=== PATIENT | female | born 1995 | race Caucasian/White ===

== ENCOUNTER 2022-09-29 11:36 | Emergency (ER) | payer BC, MEDICAID, SELFPAY ==
--- NOTE | 2022-09-29 12:13 | W.ED.GENADLT ---
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
--- NOTE | 2022-09-29 12:19 | W.ED.NAVMDI ---
HPI - Nausea/Vomiting/Diarrhea General: Chief complaint: Nausea/Vomiting/Diarrhea Stated complaint: N/V abd pain, body aches, was in heat all day yest Time Seen by Provider: 09/29/22 11:44 Source: patient Mode of arrival: ambulatory Limitations: no limitations History of Present Illness: Patient is a 27-year-old female who presents to ED today with complaint of nausea, vomiting, diarrhea. She states symptoms started this morning. She states yesterday she spent all day at the [employer] drinking alcohol out in the heat and states by yesterday evening she was vomiting. She states that persisted through the night. This morning she tried to treat with [id number] motion sickness medications as well as a warm bath. When asked about marijuana use she does report habitual chronic marijuana use. Patient reports abdominal pain mainly when trying to vomit/dry heave. She reported an episode of diarrhea yesterday evening. She has not been running fevers. No neurologic deficits. MD elicited complaint: nausea, vomiting and diarrhea Onset (ago): hour(s) Associated nausea: Yes Associated abdominal pain: Yes Location of pain: Diffuse Radiation: diffuse Pain consistency: intermittent Severity: moderate Quality: cramping Exacerbating factors: vomiting Relieving factors: none Associated symtoms: Reports nausea; Denies chest pain, dysuria, fatigue, headache(s) or malaise Treatment prior to arrival: other (motion sickness meds) Review of Systems Const: Denies: fever(s), chills, body aches, fatigue or malaise Card: Denies: chest pain Resp: Denies: dyspnea GI: Reports: abdominal pain, nausea, vomiting and diarrhea; Denies: hematemesis : Denies: flank pain, difficulty voiding, dysuria, hematuria or pelvic pain Musc: Denies: neck pain, back pain, extremity pain or joint pain Skin/Breast: Denies: rash Neuro: Denies: headache(s), numbness in extremities, weakness in extremities or sensory changes Physical Exam Const: COMMON NORMALS: average body habitus, patient oriented x3, no limitations, healthy appearing, alert and well nourished GENERAL APPEARANCE: cooperative and in distress (actively dry heaving/vomiting) ORIENTATION/CONSCIOUSNESS: Yes awake, Yes oriented to person, Yes oriented to place and Yes oriented to time HENMT: COMMON NORMALS: normocephalic and atraumatic HEAD & SCALP: normal to inspection, normocephalic and atraumatic Eye: GENERAL EYE: appearance normal, both eyes and all related structures Neck/C-Spine: COMMON NORMALS: full ROM, no lymphadenopathy and no meningeal signs Resp: COMMON NORMALS: normal respiratory effort and clear to auscultation bilaterally AUSCULTATION: clear to auscultation bilaterally Cardio: COMMON NORMALS: regular rate and regular rhythm RATE: regular rate RHYTHM: regular rhythm GI: COMMON NORMALS: Normal to inspection, nondistended, normoactive bowel sounds present, Soft to palpation, No hepatosplenomegaly present and no masses INSPECTION: Yes normal to inspection AUSCULTATION: Yes normoactive bowel sounds PALPATION: Yes Soft to palpation, Yes Tenderness to palpation present (GI) (diffusely), No Guarding due to palpation present (GI), No Rigid due to palpation and Yes No hepatosplenomegaly present : COMMON NORMALS: No no CVA tenderness BLADDER/KIDNEY EXAM: No no CVA tenderness Back/Pelvis: COMMON NORMALS: negative for no CVA tenderness, negative for thoracic and lumbar spine normal to inspection, negative for no thoracic nor lumbar tenderness and negative for thoraco-lumbar ROM normal Extremity: COMMON NORMALS: negative for normal to inspection GENERAL: No normal exam except as noted Neuro: HOWARD COMA SCALE: document GCS findings Howard coma scale eye opening: Spontaneous [place] coma scale verbal response: Orientated Howard coma scale motor response: Obey commands Howard coma scale total score: 15 COMMON NORMALS: patient oriented x3, moves all extremities, no focal motor deficits, no sensory deficits noted and gait normal SENSORIUM/ORIENTATION: Yes alert, Yes oriented to person, Yes oriented to place and Yes oriented to time MENINGEAL SIGNS: Yes no meningeal signs Skin: COMMON NORMALS: no rashes or lesions noted GENERAL SKIN EXAM: no rashes or lesions noted Course Reevaluation(s): Reevaluation #1: After IV fluids, Zofran, Ativan patient is resting comfortably in no acute distress. She has not had any further episodes of vomiting or diarrhea. She is no longer having abdominal pain. Vital Signs: Vital signs: Vital Signs Pulse Rate 62 09/29/22 12:39 Respiratory Rate 16 09/29/22 12:39 Blood Pressure 104/59 09/29/22 12:39 Pulse Oximetry 95 09/29/22 12:39 Oxygen Delivery Me thod Room Air 09/29/22 12:39 MDM - Nausea/Vomiting/Diarrhea Medical Decision Making Patient clinically is much improved after fluids and medications given here. DDx includes dehydration, adverse effects of alcohol, cannabis hyperemesis syndrome, gastroenteritis. Vitals look good. Labs shownig a gap of 24.4 most likely due to dehydration. Mild hypokalemia at 3.4. She was given replacement for this. She is cleared from an ED standpoint at this time. Return to ED precautions given. Lab Data 09/29/22 12:21 09/29/22 12:21 Laboratory Results WBC 11.4 10^3/uL (4.0-10.0) H 09/29/22 12:21 RBC 4.75 10^6/uL (4.1-5.3) 09/29/22 12:21 Hgb 14.0 g/dL (11.5-15.3) 09/29/22 12:21 Hct 40.6 % (37.0-47.0) 09/29/22 12:21 MCV 85.5 fl (81-99) 09/29/22 12:21 MCH 29.5 pg (28.0-34.0) 09/29/22 12:21 MCHC 34.5 g/dL (30.0-36.0) 09/29/22 12:21 RDW 13.1 % (12.1-15.1) 09/29/22 12:21 Plt Count 323 10^3/cmm (130-400) 09/29/22 12:21 MPV 9.1 fL (7.4-10.4) 09/29/22 12:21 Neut % (Auto) 87.5 % 09/29/22 12:21 Lymph % (Auto) 9.2 % 09/29/22 12:21 [place] % (Auto) 2.8 % 09/29/22 12:21 Eos % (Auto) 0.0 % 09/29/22 12:21 Baso % (Auto) 0.1 % 09/29/22 12:21 Neut # (Auto) 10.00 10^3/uL (1.8-7.7) H 09/29/22 12:21 Lymph # (Auto) 1.1 10^3/uL (0.8-4.8) 09/29/22 12:21 [place] # (Auto) 0.3 10^3/uL (0.2-0.9) 09/29/22 12:21 Eos # (Auto) 0.0 10^3/uL (0.0-0.8) 09/29/22 12:21 Baso # (Auto) 0.0 10^3/uL (0.0-0.1) 09/29/22 12:21 Nucleated RBC % (auto) 0 % 09/29/22 12:21 Nucleated RBCs # 0.0 /100WBC 09/29/22 12:21 Sodium 142 mmol/L (136-145) 09/29/22 12:21 Potassium 3.4 mmol/L (3.5-5.1) L 09/29/22 12:21 Chloride 101 mmol/L (98-107) 09/29/22 12:21 Carbon Dioxide 20 mmol/L (22-29) L 09/29/22 12:21 Anion Gap 24.4 (5-19) H 09/29/22 12:21 BUN 16 mg/dL (6-20) 09/29/22 12:21 Creatinine 0.8 mg/dL (0.5-0.9) 09/29/22 12:21 GFR Calculation 86.0 mL/min (90-130) L 09/29/22 12:21 Glucose 121 mg/dL (65-115) H 09/29/22 12:21 Calculated Osmolality 296 mOsm/kg (285-295) H 09/29/22 12:21 Calcium 9.9 mg/dL (8.5-10.5) 09/29/22 12:21 Total Bilirubin 0.6 mg/dL (0.15-1.2) 09/29/22 12:21 AST 31 U/L (0-32) 09/29/22 12:21 ALT 25 U/L (0-33) 09/29/22 12:21 Alkaline Phosphatase 92 U/L (35-105) 09/29/22 12:21 Total Protein 8.1 g/dL (6.6-8.7) 09/29/22 12:21 Albumin 5.0 g/dL (3.5-5.2) 09/29/22 12:21 Globulin 3.1 g/dL (1.3-4.6) 09/29/22 12:21 Lipase 16 U/L (13-60) 09/29/22 12:21 HCG, Qual Negative (Negative) 09/29/22 12:21 Discharge Plan Discharge Condition: Stable Coding Level of Care Code ED [employer]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
[2022-09-29 12:21] VITALS: BMI 18.8
[2022-09-29 12:30] LABS: Basophils % 0.1 %; Hematocrit 40.6 % (37.0-47.0); Lymphocytes # 1.1 10^3/uL (0.8-4.8); Lymphocytes % 9.2 %; Mean Corpuscular HGB Conc 34.5 g/dL (30.0-36.0); Mean Corpuscular Hemoglobin 29.5 pg (28.0-34.0); Mean Corpuscular Volume 85.5 fl (81-99); Mean Platelet Volume 9.1 fL (7.4-10.4); Monocytes # 0.3 10^3/uL (0.2-0.9); Monocytes % 2.8 %; Neutrophils % 87.5 %; Nucleated Red Blood Cells % 0 %; Platelet Count 323 10^3/cmm (130-400); Red Blood Count 4.75 10^6/uL (4.1-5.3); Red Cell Distribution Width 13.1 % (12.1-15.1); White Blood Count 11.4 10^3/uL (4.0-10.0)
[2022-09-29] MEDS: ondansetron 2 mg/ML SDV 2 mL 4 MG IVP (12:34)
[2022-09-29] MEDS: LORazepam 2 mg/mL INJ 1 mL 1 MG IVP (12:35)
[2022-09-29] MEDS: sodium chloride 0.9% 1,000 ML 999 ML IV (12:37)
[2022-09-29 12:39] VITALS: BP 104/59; PULSE 62; RESP 16; O2SAT 95
[2022-09-29 12:47] LABS: HCG, Serum Qual Negative (Negative)
[2022-09-29 12:57] LABS: Alanine Aminotransferase 25 U/L (0-33); Alkaline Phosphatase 92 U/L (35-105); Anion Gap 24.4 (5-19); Aspartate Amino Transferase 31 U/L (0-32); Blood Urea Nitrogen 16 mg/dL (6-20); Calcium 9.9 mg/dL (8.5-10.5); Carbon Dioxide 20 mmol/L (22-29); Chloride 101 mmol/L (98-107); Globulin 3.1 g/dL (1.3-4.6); Glucose 121 mg/dL (65-115); Lipase 16 U/L (13-60); Osmolality Calculated 296 mOsm/kg (285-295); Potassium 3.4 mmol/L (3.5-5.1); Sodium 142 mmol/L (136-145); Total Bilirubin 0.6 mg/dL (0.15-1.2); Total Protein 8.1 g/dL (6.6-8.7)
[2022-09-29] MEDS: potassium chloride ER 20 mEq Tablet 40 MEQ PO (13:31)
== END 2022-09-29 13:54 | disposition home or self-care (01) ==
PROVIDERS: Emergency Provider Physician Assistant
DX: R11.2 Nausea with vomiting, unspecified (principal); R19.7 Diarrhea, unspecified
CPT/HCPCS: 80053; 83690; 84703; 85025; 96374; 96375; 99284; J2060; J2405; J7030

== ENCOUNTER 2025-03-12 16:48 | Emergency (ER) | payer MEDICAID, SELFPAY ==
--- NOTE | 2025-03-12 16:52 | ED_ITS ---
HPI - Abdominal Pain 2 General: Chief Complaint: Abdominal Pain Stated Complaint: vomitting, abdominal pain Time Seen by Provider: 03/12/25 16:51 Source: patient Mode of arrival: ambulatory Limitations: no limitations History of Present Illness: Patient is a 29-year-old female presents to ED today with a complaint of diffuse abdominal pain, nausea, vomiting, diarrhea beginning yesterday. Patient states her entire abdomen has severe pain. Denies poor food exposures. She has not noticed any hematemesis or melena/hematochezia. No fevers. She arrives significantly anxious and hyperventilating and dry heaving. She was seen here 09/2022 for similar symptoms. Denies poor food exposures or sick contacts. 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 Denies marijauna use-in 2022 she was a habitual user. Family states her child has had recent vomiting as well as several other members in the home-wondering about stomach flu . MD elicited complaint: abdominal pain Onset (ago): day(s) (yesterday) Pain Consistency: constant Location: Diffuse Severity: severe Quality: stabbing and sharp Radiation: none Migration to: no migration Exacerbating factors: nothing Relieving factors: nothing Associated Symptoms: Reports diarrhea, nausea and vomiting; Denies chills, dysuria, fever(s), hematochezia, hematemesis and melena Related Data Previous Rx's ?Medication ?Instructions ?Recorded ondansetron 4 mg disintegrating 4 mg PO Q8H PRN nausea and 09/29/22 tablet vomiting #8 tabs Allergies Allergy/AdvReac Type Severity Reaction Status Date / Time No Known Allergies Allergy Verified 03/12/25 17:01 Review of Systems 2 Const: Denies: fever(s), chills, body aches, fatigue or malaise Card: Denies: chest pain Resp: Denies: dyspnea GI: Reports: abdominal pain, nausea, vomiting and diarrhea; Denies: hematemesis, hematochezia or melena : Denies: flank pain, difficulty voiding, dysuria, urinary frequency, urinary urgency or urinary hesitancy Musc: Denies: neck pain, back pain, extremity pain, extremity swelling, joint pain, joint swelling or joint redness Skin/Breast: Denies: rash Neuro: Denies: headache(s), numbness in extremities, weakness in extremities, sensory changes or dizziness Physical Exam 2 Const: COMMON NORMALS: average body habitus, patient oriented x3, no limitations, healthy appearing, alert and well nourished GENERAL APPEARANCE: cooperative, in distress (hyperventilating, dry heaving) and anxious O RIENTATION/CONSCIOUSNESS: Yes awake, Yes oriented to person, Yes oriented to place and Yes oriented to time HENMT: COMMON NORMALS: normocephalic and atraumatic HEAD & SCALP: normal to inspection, normocephalic and atraumatic Eye: COMMON NORMALS: no scleral icterus Resp: COMMON NORMALS: normal respiratory effort and clear to auscultation bilaterally EFFORT & INSPECTION: Yes tachypneic AUSCULTATION: clear to auscultation bilaterally Cardio: COMMON NORMALS: regular rate and regular rhythm RATE: regular rate RHYTHM: regular rhythm GI: INSPECTION: Yes normal to inspection AUSCULTATION: Yes normoactive bowel sounds PALPATION: Yes Tenderness to palpation present (GI) (diffusely), Yes Guarding due to palpation present (GI) and Yes Rigid due to palpation : COMMON NORMALS: Yes no CVA tenderness BLADDER/KIDNEY EXAM: Yes no CVA tenderness Back/Pelvis: COMMON NORMALS: no CVA tenderness, thoracic and lumbar spine normal to inspection and no thoracic nor lumbar tenderness Extremity: NARRATIVE EXTREMITY EXAM: L hand carpal spasm GENERAL: Yes normal exam except as noted Neuro: FACUNDO COMA SCALE: document GCS findings [place] coma scale eye opening: Spontaneous [place] coma scale verbal response: Orientated [place] coma scale motor response: Obey commands Facundo coma scale total score: 15 COMMON NORMALS: patient oriented x3, moves all extremities, no focal motor deficits and no sensory deficits noted SENSORIUM/ORIENTATION: Yes alert, Yes oriented to person, Yes oriented to place and Yes oriented to time Skin: COMMON NORMALS: no rashes or lesions noted GENERAL SKIN EXAM: no rashes or lesions noted Course 2 ED course: Patient re-evaluated and sleeping comfortably in NAD. She was awoken and tells me she feels so much better . Asking for water. I did discuss CT findings and inquired further into possible pelvic etiology-states she is not having any pelvic pain. No vaginal discharge or odor. Currently on menstrual cycle. She is not having any painful intercourse. Still pending urine at this time. ES Vital Signs: Vital signs: Vital Signs Temperature 98.7 F 03/12/25 16:58 Pulse Rate 95 03/12/25 20:09 Respiratory Rate 22 H 03/12/25 16:58 Blood Pressure 107/66 03/12/25 20:09 Pulse Oximetry 97 03/12/25 20:09 Oxygen Delivery Me thod Room Air 03/12/25 19:38 MDM - Abdominal Pain Medical Decision Making Patient here for diffuse abdominal pain as well as nausea, vomiting/dry heaving, diarrhea beginning yesterday. No fevers. She arrives anxious, hyperventilating with severe abdominal pain. Patient did previously have a history of habitual marijuana use. She initially denied this to me although clinical presentation seems suspicious for a cannabinoid hyperemesis syndrome. Her UDS did end up testing positive for marijuana. She was treated with 2L IV fluids, Ativan, Haldol and on re-examination (multiple re-examinations) she is resting comfortable and reportedly feels so much better . She is drinking in the room without difficulty. Vital signs stable. Blood work overall is unremarkable. UA is clear. UDS positive for the benzodiazepines (administered here) as well as marijuana. Abdominal re-examination is benign. CT imaging of her abdomen/pelvis obtained which shows some nonspecific findings in her pelvis. Patient states she has not been having any pelvic pain. No vaginal discharge or vaginal odor. No painful intercourse. She is currently on her menstrual cycle. No other abnormalities noted. At this time patient feels comfortable going home. Return to ED precautions discussed. Differential Diagnosis Likely abdominal pain, acute appendicitis, gastroenteritis and small bowel obstruction Medical Records I reviewed the patient's medical records. Lab Data I reviewed the patient's lab results. 03/12/25 17:03 03/12/25 17:03 Labs/Radiology: Radiology Impressions Abdomen/Pelvis CT 03/12/25 16:59 IMPRESSION: Small amount of air scattered in the pelvic peritoneal cavity in the pelvic cul-de-sac. Pelvic edema in the mesentery is noted. Subtle pelvic inflammatory process is difficult to exclude. The uterus is unremarkable. No definitive ovarian mass or adnexal mass. The appendix is probably visualized in the right lower quadrant without evidence of appendicitis. Few loops of mildly distended fluid-filled bowel in the left lower quadrant/pelvis with unclear etiology. The rectal wall may be slightly thickened/mildly inflamed. COMMENTS: Consistent with the [place] [employer]'s Incidental Findings Committee white paper (J Am Khris Radiol 2018): Any incidental renal lesion less than 1 cm or classified as too small to characterize, or any incidental cystic renal lesion characterized as simple-appearing, is likely benign. No follow-up imaging is recommended for these lesions per consensus recommendations based on imaging criteria. Laboratory Results WBC 13.16 10^3/uL (3.29-11.43) H 03/12/25 17:03 RBC 4.72 10^6/uL (3.85-5.65) 03/12/25 17:03 Hgb 13.80 g/dL (11.27-16.99) 03/12/25 17:03 Hct 40.7 % (36-47) 03/12/25 17:03 MCV 86.2 fl (85-98) 03/12/25 17:03 MCH 29.2 pg (27-33) 03/12/25 17:03 MCHC 33.9 g/dL (30-55) 03/12/25 17:03 RDW 12.6 % (12.1-15.1) 03/12/25 17:03 Plt Count 357 10^3/cmm (157-399) 03/12/25 17:03 MPV 9.0 fL (7.4-10.4) 03/12/25 17:03 Neut % (Auto) 88.5 % 03/12/25 17:03 Lymph % (Auto) 8.7 % 03/12/25 17:03 [place] % (Auto) 2.2 % 03/12/25 17:03 Eos % (Auto) 0.1 % 03/12/25 17:03 Baso % (Auto) 0.2 % 03/12/25 17:03 Neut # (Auto) 11.65 10^3/uL (1.8-7.7) H 03/12/25 17:03 Lymph # (Auto) 1.1 10^3/uL (0.8-4.8) 03/12/25 17:03 [place] # (Auto) 0.3 10^3/uL (0.2-0.9) 03/12/25 17:03 Eos # (Auto) 0.0 10^3/uL (0.0-0.8) 03/12/25 17:03 Baso # (Auto) 0.0 10^3/uL (0.0-0.1) 03/12/25 17:03 Nucleated RBC % (auto) 0 % 03/12/25 17:03 Nucleated RBCs # 0.0 /100WBC 03/12/25 17:03 Sodium 140 mmol/L (136-145) 03/12/25 17:03 Potassium 3.5 mmol/L (3.5-5.1) 03/12/25 17:03 Chloride 99 mmol/L (98-107) 03/12/25 17:03 Carbon Dioxide 22 mmol/L (22-29) 03/12/25 17:03 Anion Gap 22.5 (5-19) H 03/12/25 17:03 BUN 14 mg/dL (6-20) 03/12/25 17:03 Creatinine 0.8 mg/dL (0.5-0.9) 03/12/25 17:03 GFR Calculation 84.8 mL/min (90-130) L 03/12/25 17:03 Glucose 130 mg/dL (65-115) H 03/12/25 17:03 Calculated Osmolality 292 mOsm/kg (285-295) 03/12/25 17:03 Calcium 10.0 mg/dL (8.5-10.5) 03/12/25 17:03 Total Bilirubin 0.5 mg/dL (0.15-1.2) 03/12/25 17:03 AST 31 U/L (0-32) 03/12/25 17:03 ALT 29 U/L (0-33) 03/12/25 17:03 Alkaline Phosphatase 83 U/L (35-105) 03/12/25 17:03 Total Protein 8.1 g/dL (6.6-8.7) 03/12/25 17:03 Albumin 5.2 g/dL (3.5-5.2) 03/12/25 17:03 Globulin 2.9 g/dL (1.3-4.6) 03/12/25 17:03 Lipase 19 U/L (13-60) 03/12/25 17:03 HCG, Qual Negative (Negative) 03/12/25 17:03 Urine Color Yellow (Yellow) 03/12/25 19:22 Urine Appearance Clear (CLEAR) 03/12/25 19:22 Urine pH 5.5 (5-7) 03/12/25 19:22 Ur Specific [place] >= 1.099 (1.005-1.030) H 03/12/25 19:22 Urine Protein 1+ (Negative) A 03/12/25 19:22 Urine Glucose (UA) Negative (Normal) 03/12/25 19:22 Urine Ketones 1+ (Negative) H 03/12/25 19:22 Urine Blood Negative (Negative) 03/12/25 19:22 Urine Nitrate Negative (Negative) 03/12/25 19:22 Urine Bilirubin Negative (Negative) 03/12/25 19:22 Urine Urobilinogen 0.2 mg/dL (Negative) 03/12/25 19:22 Ur Leukocyte Esterase Negative (Negative) 03/12/25 19:22 Urine RBC 0-4 /hpf (0-2) H 03/12/25 19:22 Urine WBC 0-4 /hpf (0-5) H 03/12/25 19:22 Ur Squamous Epith Cells 0-4 /hpf (0-5) H 03/12/25 19:22 Amorphous Sediment Not Reportable 03/12/25 19:22 Urine Bacteria None /hpf (NONE) 03/12/25 19:22 Urine Opiates Screen Negative ng/mL (Negative) 03/12/25 19:22 Ur Barbiturates Screen Negative ng/mL (Negative) 03/12/25 19:22 Ur Phencyclidine Scrn Negative ng/mL (Negative) 03/12/25 19:22 Ur Amphetamines Screen Negative ng/mL (Negative) 03/12/25 19:22 U Benzodiazepines Scrn Positive ng/mL (Negative) H 03/12/25 19:22 Urine Cocaine Screen Negative ng/mL (Negative) 03/12/25 19:22 U Marijuana (THC) Screen Positive ng/mL (Negative) H 03/12/25 19:22 All radiology interpretation(s) finalized by discharge Discharge Plan Discharge Patient Disposition: Home Clinical Impression: Dehydration, Gastroenteritis Condition: Stable Prescriptions: No Action ondansetron 4 mg tablet,disintegrating 4 mg PO Q8H PRN (Reason: nausea and vomiting) Qty: 8 0RF Discharge Orders: Discharge ED (Routine); Ordered 03/12/25 Ordered By: Ivanna Wilkinson Patient Instructions: Acute Nausea and Vomiting (DC), Abdominal Pain (ED), Patient Portal & Mariaa Instructions Activity Restrictions/Additional Instructions: As we discussed, blood work here overall was unremarkable. Continue to monitor symptoms closely at home. Continue to push fluids to avoid dehydration. Patient needs to return to the emergency department for onset of worsening or severe abdominal pains, repetitive episodes of vomiting or diarrhea, fevers, lightheadedness/dizziness/passing out episodes, generally feeling worse or unwell, or any other concerns you may have. I hope you begin to feel better soon. 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
[2025-03-12 16:58] VITALS: PULSE 69; RESP 22; TEMP 37.1; O2SAT 99; BMI 22.4
--- OUTSIDE RECORDS SUMMARY | 2025-03-12 16:58 | XMS_ITS | Clinical Summary ---
Author Organization [facility] Address [address] Huang: Epic Prelude ADT AYDEE MANCIA [address] Care Team Providers Care Software Tools Engineer Name Role Phone Unavailable Primary Care Provider Unavailabl e Allergies No known active allergies Medications biotin 10 mg Tablet Take by mouth daily. Active Drospirenone-Eth inyl estradiol (Dangelo Spears,) 3-0.02 mg tabletIndication s:Irregular menses Take 1 Tablet by mouth daily. 84 Tablet 4 05/15/2022 Active Active Problems Problem Noted Date Diagnosed Date LUQ abdominal pain 10/19/2016 Chlamydia infection complica ting in first trimester 10/18/2016 Intractable headache 10/17/2016 Constipation 10/17/2016 Low back pain 10/17/2016 FHx: spina bifida 10/16/2016 FHx: cystic fibrosis 10/16/2016 Subchorionic hemorrhage in first trimester 10/16 Supervision of other normal , antepartu m 10/14/2016 Resolved Problems Problem Noted Date Diagnosed Date Resolved Date Acute pelvic inflammatory disease (PID) 10/17/2016 04/23/2017 Abdominal pain, acute, right lower quadrant 10/16/2016 04/23/2017 Fever of unknown origin (FUO) 10/16/2016 04/23/2017 Supervision of normal pregna ncy- TDap given 09/18/14 06/01/2014 01/24/2015 Immunizations Immunization Administration Dates Next Due (ADACEL/BOOSTRIX)(10 YR UP) TDAP VACCINE, 0.5ML, IM 09/18/2014 INFLUENZA VACCINE QUADRIVALENT 3 YR UP PF IM 01/2017 Family History Medical History Relation Name Comments Cancer Brother non hodgkins No Known Problems Daughter Cancer Father Cancer Maternal Grandfather Stroke Maternal Grandfather Healthy Mother Breast Cancer Other maternal great aunts No Known Problems Son 1 No Known Problems Son 2 Colon Cancer Neg Hx Ovarian Cancer Neg Hx Relation Name Status Comments Brother Alive Daughter Alive Father Maternal Grandfather Alive Mother Alive Other Son 1 Alive Son 2 Alive Social History Tobacco Use Types Packs/Day Years Used Date Smoking Tobacco: Never Smokeless Tobacco: Never Alcohol Use Standard Drinks/Week Comments Never 0 (1 standard drink = 0.6 oz pur e alcohol) Comments No Sex and Gender Information Value Date Recorded Sex Assigned at Not on file Legal Sex Female 5:26 AM ADMISSIONS ADVISOR Gender Identity Not on file Sexual Orientation Not on file Last Filed Vital Signs Vital Sign Reading Time Taken Comments Blood Pressure 124/72 05/15/2022 9:23 AM ADMISSIONS ADVISOR Pulse 71 06/10/2021 9:45 AM CDT Temperature 36.4 C (97.6 F) 06/10/2021 9:14 AM CDT Respiratory Rate 22 06/10/2021 9:16 AM CDT Oxygen Saturation 100% 06/10/2021 9:45 AM CDT Inhaled Oxygen Concentration - - Weight 62.1 kg (137 lb) 05/15/2022 9:23 AM ADMISSIONS ADVISOR Height 160 cm (5' 3 ) 05/15/2022 9:23 AM ADMISSIONS ADVISOR Body Mass Index 24.27 05/15/2022 9:23 AM ADMISSIONS ADVISOR Plan of Treatment Health Maintenance Due Date Last Done Comments HEPATITIS B VACCINES (1 of 3 - 19+ 3-dose series) 06/14/2014 DTAP/TDAP/TD VACCINES (2 - Td or Tdap) 09/18/2024 INFLUENZA VACCINE (#1) 2024 01/07/2017 CERVICAL CANCER SCREENING 05/15/2025 PAP SMEAR 05/15/2025 05/15/2022, 10/16/2016 HPV/Cotest (21-29) 05/15/2027 05/15/2022, 10/16/2016 HPV/Cotest (30-65) 05/15/2027 05/15/2022, 10/16/2016 HPV VACCINES (No Doses Required) Completed Medical Devices Implanted Type Area Creative Manager Device Identifier Shelf Expiration Date Model / Serial / Lot Imp Breast Memorygel Rnd Mp+ 450ml [id number] - [id number] Implanted:Qty: 1 on 06/10/2021 by Liliana Perez MD at [facility] Mammary Left: Breast MENTOR SHELLIE 08/19/2025 [id number] / [id number] Imp Breast Memorygel Rnd Mp+ 450ml [id number] - [id number] Implanted:Qty: 1 on 06/10/2021 by Liliana Perez MD at [facility] Mammary Right: Breast MENTOR SHELLIE 07/01/2025 [id number] / [id number] Procedures Procedure Name Priority Date/Time Associated Diagnosis Comments CERV/VAG CYTO SCREEN PAP RLFX HPV Routine 05/15/2022 9:59 AM ADMISSIONS ADVISOR Screening for cervical cancer from Last 3 Months or Most Recently Relevant to Health Maintenance Results * (ABNORMAL) CERV/VAG CYTO SCREEN PAP RLFX HPV (05/15/2022 9:59 AM ADMISSIONS ADVISOR) CLINICAL INFORMATION [facility] Comment:None given LAST MENSTRUAL PERIOD [facility] Comment:[id number] PREV PAP: [facility] [place] Comment:NONE GIVEN PREV BX: [facility] Comment:NONE GIVEN SOURCE [facility] [place] Comment:ENDOCERVIX ADEQUACY: [facility] [place] Comment: Satisfactory for evaluation. Endocervical/transformation zone component present. GENERAL CATEGORIZATION: (A) [facility] Comment:EPITHELIAL CELL ABNO RMALITY PAP INTERP (A) [facility] Comment: Atypical Squamous Cells of Undetermined Significance (ASC-US) COMMENT (PAP TEST) [facility] [place] Comment: This Pap test has been evaluated with computer assisted technology. Suggest clinical correlation and follow-up as clinically appropriate FUEL CELL REPAIRER: Lelo Oconnor Comment: PCM, CT(ASCP) CT Screening Location: [place] [address] [place] [address] PATHOLOGIST [facility] Comment: John Holloway M.D., Board Certified in Anatomic Pathology and Cytopathology. (electronic signature) EXPLANATORY NOTE [facility] Comment: EXPLANATORY NOTE: The Pap is a screening test for cervical cancer. It is not a diagnostic test and is subject to false negative and false positive results. It is most reliable when a satisfactory sample, regularly obtained, is submitted with relevant clinical findings and history, and when the Pap result is evaluated along with historic and current clinical information. HPV E6/E7 Detected( A) Not Detected [facility] Comment: Methodology: Professional System Administrator-Mediated Amplification This assay detects E6/E7 viral messenger RNA (mRNA) from 14 high-risk HPV types (16,18,31,33,35,39,45,51,52,56,58,59,66,68). Cervical sources are required for HPV testing. If a vaginal source from a patient who has had a total hysterectomy with removal of cervix was submitted, please contact the testing laboratory for alternative testing options. For additional information, please refer to http://education.[employer]/faq/BAE166v1 (This link if provided for information/ educational purposes only.) Test Performed at: [facility] [address] [address] Yasmin SONI Genital SWAB OF ENDOCERVIX / Unknown 05/15/2022 9:59 AM ADMISSIONS ADVISOR 05/16/2022 5:34 AM ADMISSIONS ADVISOR Jade Nickerson IMMIGRATION OFFICER PATHOLOGY/CYTOLOGY ORDERABL ES Final Result [facility] [phone] [facility] [address] [address] from Last 3 Months or Most Recently Relevant to Health Maintenance Insurance [facility] [id number] * Guarantor: CORTNEY TERRY Account Karey Relation to Patient Date of Phone Billing Address Personal/Family [address] [place] [address] RX INFOCROSSING Medicaid Advance Directives For more information, please contact: [phone] * Full Code (Latest Code Status on File) Date Activated Date Inactivated Comments 06/10/2021 6:27 AM 06/10/2021 12:27 PM
--- OUTSIDE RECORDS SUMMARY | 2025-03-12 16:58 | XMS_ITS | Clinical Summary ---
Author Organization [facility] Address [address] [address] Care Team Providers Care Pneumatic Systems Operator Name Role Phone Unavailable Primary Care Provider Unavailabl e Allergies No known active allergies Medications No known medications Active Problems Problem Noted Date Diagnosed Date LUQ abdominal pain 10/19/2016 Chlamydia infection complica ting in first trimester 10/18/2016 Intractable headache 10/17/2016 Low back pain 10/17/2016 Constipation 10/17/2016 FHx: spina bifida 10/16/2016 FHx: cystic fibrosis 10/16/2016 Subchorionic hemorrhage in first trimester 10/16 Supervision of other normal , antepartu m 10/14/2016 Resolved Problems Problem Noted Date Diagnosed Date Resolved Date Acute pelvic inflammatory disease (PID) 10/17/2016 04/23/2017 Fever of unknown origin (FUO) 10/16/2016 04/23/2017 Abdominal pain, acute, right lower quadrant 10/16/2016 04/23/2017 Supervision of normal pregna ncy- TDap given 09/18/14 06/01/2014 01/24/2015 Immunizations Immunization Administration Dates Next Due (ADACEL/BOOSTRIX)(10 YR UP) TDAP VACCINE, 0.5ML, IM 09/18/2014 INFLUENZA VACCINE QUADRIVALENT 3 YR UP PF IM 01/2017 Family History Medical History Relation Name Comments Cancer Brother non hodgkins Stroke Maternal Grandfather Healthy Mother Breast Cancer Other maternal great aunts Colon Cancer Neg Hx Ovarian Cancer Neg Hx Relation Name Status Comments Brother Alive Maternal Grandfather Mother Alive Other Social History Tobacco Use Types Packs/Day Years Used Date Smoking Tobacco: Never Smokeless Tobacco: Never Tobacco Cessation:Counseling Given: No Alcohol Use Standard Drinks/Week Comments No 0 (1 standard drink = 0.6 oz pur e alcohol) Comments No Sex and Gender Information Value Date Recorded Sex Assigned at Not on file Legal Sex Female 1:01 PM LAYOUT OPERATOR Gender Identity Not on file Sexual Orientation Not on file Last Filed Vital Signs Vital Sign Reading Time Taken Comments Blood Pressure 100/80 05/11/2020 9:12 AM LAYOUT OPERATOR Pulse 63 09/08/2017 1:00 AM CDT Temperature 36.6 C (97.9 F) 09/07/2017 9:08 PM CDT Respiratory Rate 18 09/07/2017 11:00 PM CDT Oxygen Saturation 95% 09/08/2017 1:00 AM CDT Inhaled Oxygen Concentration - - Weight 71.2 kg (157 lb) 05/11/2020 9:12 AM LAYOUT OPERATOR Height 160 cm (5' 3 ) 05/11/2020 9:12 AM LAYOUT OPERATOR Body Mass Index 27.81 05/11/2020 9:12 AM LAYOUT OPERATOR Plan of Treatment Health Maintenance Due Date Last Done Comments HEPATITIS B VACCINES (1 of 3 - 19+ 3-dose series) 05/28 CERVICAL CANCER SCREENING 10/17/2019 PAP SMEAR 10/17/2019 10/16/2016 HPV/Cotest (21-29) 10/16/2021 10/16/2016 DTAP/TDAP/TD VACCINES (2 - Td or Tdap) 09/18/2024 INFLUENZA VACCINE (#1) 2024 01/07/2017 HPV/Cotest (30-65) 06/14/2025 10/16/2016 HPV VACCINES (No Doses Required) Completed Procedures Procedure Name Priority Date/Time Associated Diagnosis Comments CERV/VAG CYTO SCREEN PAP RLFX HPV Routine 10/16/2016 12:11 PM CDT Supervision of other normal , antepartum from Last 3 Months or Most Recently Relevant to Health Maintenance Results * CERV/VAG CYTOPATH, THIN PREP IMAGR RFLX HPV (10/16/2016 12:11 PM CDT) CLINICAL INFORMATION SEE COMMENT 10/22/2016 12:51 PM CDT [facility] Comment: Routine exam LAST MENSTRUAL PERIOD SEE COMMENT 10/22/2016 12:51 PM CDT [facility] Comment:INFORMATION NOT PROV IDED PREV PAP: SEE COMMENT 10/22/2016 12:51 PM CDT [facility] Comment:INFORMATION NOT PROV IDED PREV BX: SEE COMMENT 10/22/2016 12:51 PM CDT [facility] Comment:INFORMATION NOT PROV IDED SOURCE Endocervix 10/22/2016 12:51 PM CDT [facility] ADEQUACY: SEE COMMENT 10/22/2016 12:51 PM CDT [facility] Comment: Satisfactory for evaluation. Endocervical/transformation zone component present. PAP INTERP SEE COMMENT 10/22/2016 12:51 PM CDT [facility] Comment:Negative for intraep ithelial lesion or malignancy. COMMENT SEE COMMENT 10/22/2016 12:51 PM CDT [facility] Comment: This Pap test has been evaluated with computer assisted technology. ELECTRIC CONTAINER TESTER: SEE COMMENT 2016 12:51 PM CDT [facility] Comment: MLK, CT(ASCP) CT screening location: [place] [address] [place] [address] Genital SWAB OF ENDOCERVIX / Unknown Collection / Unknown 10/16/2016 12:11 PM CDT 10/17/2016 7:07 AM CDT Narrative [facility] - 10/22/2016 12:51 PM CDT Performing Organization Information: Site ID: [email or web address] Name: [email or web address] Address: [facility] [address] [place] [address] Director: Yasmin Gunderson MD us Milena Escobedo MD PATHOLOGY/CYTOLOGY ORD ERABLES Final Result [facility] from Last 3 Months or Most Recently Relevant to Health Maintenance Insurance [facility] MEDICAID RX INFOCROSSING Medicaid Advance Directives For more information, please contact: [phone] * Full Code (Latest Code Status on File) Date Activated Date Inactivated Comments 04/24/2017 1:24 PM 04/25/2017 9:29 PM * Full Code Date Activated Date Inactivated Comments 04/24/2017 12:04 AM 04/24/2017 1:24 PM * Full Code Date Activated Date Inactivated Comments 10/16/2016 10:05 PM 10/21/2016 2:48 PM * Full Code Date Activated Date Inactivated Comments 12/14/2014 3:41 PM 12/16/2014 3:53 PM * Full Code Date Activated Date Inactivated Comments 12/14/2014 8:13 AM 12/14/2014 3:41 PM
--- NOTE | 2025-03-12 16:59 | CTR_ITS ---
PROCEDURE INFORMATION: Exam: CT Abdomen And Pelvis With Contrast Exam date and time: 03/12/2025 5:36 PM Age: 29 years old Clinical indication: Nausea and vomiting; Abdominal pain; Generalized; Diffuse abd pain with n/v/d. ; Additional info: Diffuse abdominal pain, n/v/d TECHNIQUE: Imaging protocol: Computed tomography of the abdomen and pelvis with contrast. 1 image(s) are submitted. Radiation optimization: All CT scans at this facility use at least one of these dose optimization techniques: automated exposure control; mA and/or kV adjustment per patient size (includes targeted exams where dose is matched to clinical indication); or iterative reconstruction. Contrast material: OMNI 350; Contrast volume: 100 ml; Contrast route: INTRAVENOUS (IV); COMPARISON: No relevant prior studies available. RADIATION DOSE METRICS: Total DLP (mGy-cm): 361.27 FINDINGS: Liver: Normal. No mass. Gallbladder and biliary ducts: Normal. No calcified stones. No ductal dilation. Pancreas: Normal. No ductal dilation. Spleen: Normal. No splenomegaly. Adrenal glands: Normal. No mass. Kidneys and ureters: There are 3 probably simple subcentimeter renal cysts, 2 on the left and 1 on the right. No follow-up needed. Bilateral breast implants. Stomach and bowel: See Intraperitoneal space finding. Appendix: See Intraperitoneal space finding. Intraperitoneal space: Small amount of air scattered in the pelvic peritoneal cavity in the pelvic cul-de-sac. Pelvic edema in the mesentery is noted. Subtle pelvic inflammatory process is difficult to exclude. The uterus is unremarkable. No definitive ovarian mass or adnexal mass. The appendix is probably visualized in the right lower quadrant without evidence of appendicitis. Few loops of mildly distended fluid-filled bowel in the left lower quadrant/pelvis with unclear etiology. The rectal wall may be slightly thickened/mildly inflamed. Vasculature: Unremarkable. No abdominal aortic aneurysm. Lymph nodes: Unremarkable. No enlarged lymph nodes. Urinary bladder: Unremarkable as visualized. Reproductive: See Intraperitoneal space finding. Bones/joints: Unremarkable. No acute fracture. Soft tissues: See Kidneys and ureters finding. Other findings: Findings were discussed with PAVAN DIAZ at 03/12/2025 5:52 PM [address]IC TUBE FITTER. CT/CT abdomen pelvis w con* [id number] IMPRESSION: Small amount of air scattered in the pelvic peritoneal cavity in the pelvic cul-de-sac. Pelvic edema in the mesentery is noted. Subtle pelvic inflammatory process is difficult to exclude. The uterus is unremarkable. No definitive ovarian mass or adnexal mass. The appendix is probably visualized in the right lower quadrant without evidence of appendicitis. Few loops of mildly distended fluid-filled bowel in the left lower quadrant/pelvis with unclear etiology. The rectal wall may be slightly thickened/mildly inflamed. COMMENTS: Consistent with the [employer]'s Incidental Findings Committee white paper (J Am Khris Radiol 2018): Any incidental renal lesion less than 1 cm or classified as too small to characterize, or any incidental cystic renal lesion characterized as simple-appearing, is likely benign. No follow-up imaging is recommended for these lesions per consensus recommendations based on imaging criteria.
[2025-03-12] MEDS: LORazepam 2 mg/mL INJ 1 mL 1 MG IVP (17:09)
[2025-03-12 17:10] LABS: Hematocrit 40.7 % (36-47); Hemoglobin 13.80 g/dL (11.27-16.99); Mean Corpuscular HGB Conc 33.9 g/dL (30-55); Mean Corpuscular Hemoglobin 29.2 pg (27-33); Mean Corpuscular Volume 86.2 fl (85-98); Nucleated Red Blood Cells % 0 %; Platelet Count 357 10^3/cmm (157-399); Red Blood Count 4.72 10^6/uL (3.85-5.65); White Blood Count 13.16 10^3/uL (3.29-11.43)
[2025-03-12] MEDS: haloperidol inj 5 mg/mL INJ 1 mL 2.5 MG IVP (17:10)
[2025-03-12 17:18] VITALS: BP 116/90; PULSE 48; O2SAT 94
[2025-03-12 17:22] LABS: HCG, Serum Qual Negative (Negative)
[2025-03-12 17:26] LABS: Alanine Aminotransferase 29 U/L (0-33); Albumin Level 5.2 g/dL (3.5-5.2); Alkaline Phosphatase 83 U/L (35-105); Anion Gap 22.5 (5-19); Aspartate Amino Transferase 31 U/L (0-32); Blood Urea Nitrogen 14 mg/dL (6-20); Calcium 10.0 mg/dL (8.5-10.5); Carbon Dioxide 22 mmol/L (22-29); Chloride 99 mmol/L (98-107); Creatinine Clr Calc Pharmacy 85.7943; Globulin 2.9 g/dL (1.3-4.6); Glucose 130 mg/dL (65-115); Lipase 19 U/L (13-60); Osmolality Calculated 292 mOsm/kg (285-295); Potassium 3.5 mmol/L (3.5-5.1); Sodium 140 mmol/L (136-145); Total Protein 8.1 g/dL (6.6-8.7)
[2025-03-12] MEDS: iohexol 350 mg/mL 500 mL Btl (per mL) IV (17:38)
[2025-03-12 17:53] VITALS: BP 113/65; PULSE 71; O2SAT 97
[2025-03-12 18:19] VITALS: BP 91/49; PULSE 57; O2SAT 98
[2025-03-12 19:29] LABS: Glucose Urine UA Negative (Normal); Nitrate Urine Negative (Negative)
[2025-03-12 19:37] LABS: PCP Screen Urine Negative (Negative)
[2025-03-12 19:38] VITALS: BP 98/65; PULSE 71; O2SAT 95
[2025-03-12 19:51] LABS: Add Urine Microscopic? YES; Specific Gravity, Urine >= 1.099 (1.005-1.030)
[2025-03-12 20:09] VITALS: BP 107/66; PULSE 95; O2SAT 97
== END 2025-03-12 20:05 | disposition home or self-care (01) ==
PROVIDERS: Emergency Provider Physician Assistant
DX: E86.0 Dehydration (principal); K52.9 Noninfective gastroenteritis and colitis, unspecified; F12.10 Cannabis abuse, uncomplicated
CPT/HCPCS: 36415; 74177; 80053; 80306; 81001; 83690; 84703; 85025; 96361; 96374; 96375; 99285; J1630; J2060; J7030